=== PATIENT | male | born 1975 | race Caucasian/White ===

== ENCOUNTER 2017-02-07 14:31 | Day surgery (SDC) | payer OTHER ==
[2017-02-07 15:35] LABS: ADD MAN DIFF? NO
[2017-02-07 15:37] LABS: WHITE BLOOD COUNT 8.1 10^3/ul (4.8-10.8)
[2017-02-07 15:37] LABS: BASOPHIL # 0.1 10^3/ul (0.0-0.1); BASOPHILS % 0.6 % (0.0-2.0); EOSINOPHILS # 0.3 10^3/ul (0.0-0.5); EOSINOPHILS % 4.1 % (0.0-7.0); HEMATOCRIT 42.9 % (42.0-52.0); HEMOGLOBIN 15.4 g/dl (14.0-18.0); LYMPHOCYTES # 2.7 10^3/ul (0.8-2.9); LYMPHOCYTES % 33.8 % (15.0-51.0); MEAN CORPUSCULAR HEMOGLOBIN 31.9 pg (29.0-33.0); MEAN CORPUSCULAR HGB CONC 35.9 g/dl (32.0-37.0); MEAN CORPUSCULAR VOLUME 88.8 fl (82.0-101.0); MONOCYTE # 0.6 10^3/ul (0.3-0.9); MONOCYTES % 7.6 % (0.0-11.0); NEUTROPHIL # 4.3 10^3/ul (1.6-7.5); NEUTROPHILS % 53.4 % (39.0-77.0); PLATELET COUNT 230 10^3/UL (140-415); RED BLOOD COUNT 4.83 10^6/ul (4.70-6.10); RED CELL DISTRIBUTION WIDTH 12.3 % (11.5-14.5)
[2017-02-07] MEDS ORDERED: MIDAZOLAM 1 MG/ML 2 ML INJ (18:12)
[2017-02-07] MEDS: LIDOCAINE 1%/EPI 30 ML INJ (18:41)
[2017-02-07] MEDS: POLYMYXIN/BACITRACIN 1L IRRIG (18:41)
[2017-02-07] MEDS: BUPIVACAINE 0.5% (SDV) 30 ML INJ (18:41)
[2017-02-07] MEDS ORDERED: BUPIVACAINE 0.5% (SDV) 30 ML INJ (19:09)
[2017-02-07] MEDS ORDERED: LIDOCAINE 1%/EPI 30 ML INJ (19:09)
[2017-02-07] MEDS ORDERED: PROPOFOL 20 ML (19:17)
[2017-02-07] MEDS ORDERED: CEFAZOLIN 1 GM INJ (19:17)
[2017-02-07] MEDS ORDERED: LIDOCAINE 2% (SDV) 5 ML INJ (19:17)
[2017-02-07] MEDS ORDERED: ONDANSETRON 4 MG INJ (19:18)
[2017-02-07] MEDS ORDERED: HYDROmorphONE (0.2 MG/ML) 10ML SYG IV ×2 (20:00)
[2017-02-07] MEDS ORDERED: METOCLOPRAMIDE 10 MG INJ IV (20:00)
[2017-02-07] MEDS ORDERED: MEPERIDINE 25 MG INJ IV (20:00)
[2017-02-07] MEDS ORDERED: DIPHENHYDRAMINE 50 MG INJ IV (20:00)
[2017-02-07] MEDS: FENTAnyl 50 MCG/ML VIAL IV (21:13)
[2017-02-07] MEDS: ONDANSETRON 4 MG INJ IV (21:23)
== END 2017-02-07 21:23 | disposition home or self-care (01) ==
LOC: SDS 14:31
DX: S62.614B Displaced fracture of proximal phalanx of right ring finger, initial encounter for open fracture (principal); S64.494A Injury of digital nerve of right ring finger, initial encounter; S66.394A Other injury of extensor muscle, fascia and tendon of right ring finger at wrist and hand level, initial encounter; L98.499 Non-pressure chronic ulcer of skin of other sites with unspecified severity; L90.5 Scar conditions and fibrosis of skin; X58.XXXA Exposure to other specified factors, initial encounter
CPT/HCPCS: 26910; 85025; 88305; 88311

== ENCOUNTER 2017-02-21 00:26 | Emergency (ER) | payer OTHER | END 2017-02-21 07:31 | disposition home or self-care (01) | LOC: FTE 07:31 | DX: R05 Cough (principal); F17.210 Nicotine dependence, cigarettes, uncomplicated; Z48.01 Encounter for change or removal of surgical wound dressing | CPT/HCPCS: 71020; 99283-25 ==